=== PATIENT | female | born 1975 | race Hispanic/Latino ===

== ENCOUNTER 2019-07-15 10:19 | Day surgery (SDC) | payer OTHER ==
[2019-07-12 11:03] LABS: Absolute Lymphocytes (CBC) 1.6 K/uL (0.7-4.9); Basophils % 0.5 % (0-1.3); Hematocrit 38.3 % (36.0-45.0); Lymphocytes % 32.2 % (15.3-44.8); MPV 8.5 fL (7.6-11.3); RBC Red Blood Cell Count 4.34 M/uL (3.86-4.86)
[2019-07-15] MEDS ORDERED: Ringers Lactate 1,000 ML IV ONE (10:29)
[2019-07-15 10:54] LABS: Specific Gravity 1.025 (1.005-1.030)
[2019-07-15] MEDS ORDERED: LIDOCAINE 2% MPF 5 ML VIAL ONE (11:41)
[2019-07-15] MEDS ORDERED: MIDAZOLAM HCL 2 MG/2 ML INJ ONE (11:41)
[2019-07-15] MEDS ORDERED: FENTANYL CITR 100 MCG/2 ML ONE (11:41)
[2019-07-15] MEDS ORDERED: propofoL 200 MG/20 ML VIAL IV ONE (11:41)
[2019-07-15] MEDS: CEFAZOLIN/SWI 2gm 2 GM/20 ML SYR ONE ×2 (11:42→12:43)
[2019-07-15] MEDS ORDERED: KETOROLAC 30 MG/ML INJ ONE (13:12)
[2019-07-15] MEDS: MEPERIDINE HCL 25 MG/0.5 ML ONE ×2 (14:05→14:15)
[2019-07-15] MEDS ORDERED: ONDANSETRON 4 MG/2 ML VIAL ONE ×2 (14:07→15:50)
[2019-07-15] MEDS ORDERED: PROMETHAZINE INJ 25 MG/ML AMP ONE (14:08)
[2019-07-15] MEDS ORDERED: dexAMETHasone 4 MG/ML VIAL ONE (15:49)
[2019-07-15 16:09] VITALS: BP 106/61; TEMP 99; O2SAT 100
[2019-07-15] MEDS ORDERED: HYDROCODONE/APAP 5/325 MG TAB ONE (16:09)
--- NOTE | 2019-07-16 03:07 | OP ---
Date of Procedure: 07/15/2019 Surgeon: Joyce Bryant MD Preoperative Diagnosis: Menorrhagia and dysmenorrhea. Postoperative Diagnosis: Menorrhagia and dysmenorrhea and fibroids. Procedure Performed: Hysteroscopy, endometrial ablation with novasure. Anesthesia: General. Specimens: None. Complications: None. Drains: None. Condition: Stable. Findings: Tiny less than a half a centimeter type 1 leiomyoma at the right cornual end at the fundus, rest of the cavity unremarkable. Excellent endometrial ablation effect was seen. Description Of Procedure: Patient is a 44-year-old with heavy periods, history of recurrent anemia, dysmenorrhea. She has been poorly compliant with her iron , however, she is symptomatic with fatigue from her anemia. She had a transvaginal ultrasound and sampling of her endometrium. No endometrial atypia or malignancy was seen. Discussed the different options of treatment including the Mirena IUD, depot medroxyprogesterone, and an ablation. Patient wanted to proceed with an ablation and so patient was consented and brought to the OR. 2 g of Ancef were given preop. She was taken back to OR, placed in a supine fashion on the operating table. General anesthesia was given, placed in a dorsal lithotomy position. Pelvic exam was performed. Anteflexed uterus. Speculum placed to expose this. After prep with Betadine x3 was done on the vulva vagina and perineum. Speculum was placed to expose the cervix. The anterior lip grasped with 2 Allis clamps. Diagnostic SlimLine hysteroscope used to enter the cervical canal under direct visualization into the uterine cavity. Cavity was mostly unremarkable, excepting the small type 1 leiomyoma at the top of the uterine cavity. The fundus is extremely small and would not interfere with her ablation so proceeded to perform the ablation. Direct measurements of the uterine cavity were taken. The length to the fundus was 8.5 cm, which is the sounding length, and cervix was 3.5 cm. The calculated cavity length of 5 cm was cut into the generator. After the scope was removed, the NovaSure device was opened up, primed, then introduced and deployed. The width was 3.7 cm. This was entered into the generator after occluding the external os with the occluder. Then the cavity integrity test was done. After this was passed the device was enabled and ablation cycle was done for 57 seconds without any interruptions. Her power settings were 102 kendrick. After un -deploying the NovaSure device, a slimline hysteroscope was used to perform a hysteroscopy and there was excellent ablation effect. There was 1 tiny strip of endometrium adjacent to the fibroid at the fundus medial to it that appeared slightly pink, but rest of the endometrial cavity was completely unremarkable and had excellent ablation effect including the cornual ends. The cavity was rinsed out and Allis clamps removed. Instrument, needle, and sponge counts were then done at the end of the case. 30 mg of Toradol intravenous was given to the patient. She was recovered from anesthesia in the OR and taken to the PACU in stable condition. She has a followup with me in 1 month and narcotic prescription has been given to the patient. DELVIS Voice ID: [id number] Report ID: [id number]
== END 2019-07-15 16:30 | disposition home or self-care (01) ==
LOC: OR 10:19
PROVIDERS: ATTEND Obstetrics & Gynecology
PROC: 0U5B8ZZ Destruction of Endometrium, Via Natural or Artificial Opening Endoscopic (ICD-10-PCS; principal; 2019-07-15 09:30)
DX: N92.1 Excessive and frequent menstruation with irregular cycle (principal); D25.9 Leiomyoma of uterus, unspecified; N94.6 Dysmenorrhea, unspecified; D50.0 Iron deficiency anemia secondary to blood loss (chronic); Z82.3 Family history of stroke
CPT/HCPCS: 85025; 36415; 81025; 58563; J2704; J2550; J2250; J3010; J2175; J0690; J7120; J2405 ×2